=== PATIENT | female | born 1990 | race American Indian/Alaskan Native ===

== ENCOUNTER 2017-05-30 14:16 | Inpatient (IN) | payer MEDICAID ==
[2017-05-30] MEDS ORDERED: Misoprostol 400 MCG (4 X 100 MCG TAB) RECTAL PRN (14:27)
[2017-05-30] MEDS ORDERED: Sodium Chloride 0.9% 10 ML Syringe FLUSH PRN (14:27)
[2017-05-30] MEDS ORDERED: Methylergonovine 0.2 MG/1 ML Amp IM PRN (14:27)
[2017-05-30] MEDS ORDERED: Carboprost Tromethamine 250 MCG/1 ML Amp IM PRN (14:27)
[2017-05-30] MEDS ORDERED: Ondansetron 4 MG/2 ML SDV IV PRN (14:27)
[2017-05-30] MEDS ORDERED: Lactated Ringers 500 ML IV ONE (14:27)
[2017-05-30] MEDS ORDERED: Lidocaine 1% 30 ML SDV INJECT PRN (14:27)
[2017-05-30] MEDS: Lactated Ringers 1,000 ML IV SCH ×4 (14:38→19:55)
[2017-05-30] MEDS ORDERED: Oxytocin/Normal Saline 30 UNIT/500 ML BAG IV SCH (14:45)
[2017-05-30] MEDS ORDERED: fentaNYL 100 MCG/2 ML SDV ONE (15:46)
--- NOTE | 2017-05-30 16:15 | PCM.SN ---
- Free Text/Narrative Note: Intrathecal, Sitting position, sterile prep and drape. 1 % lidocaine w bicarb for skinwheal to L3 L4 interspace. Introducer, 24 Ga pencan x 2. Pos CSF, neg heme, neg parasthesia, 20 mcg PF sufenta, 30 mcg PF fentanyl, 0.4 ml PF NS and 6 mg of 0.75% PF bupivacaine injected after CSF aspiration. Pt to L lateral position. Procedure time 1645 to 1510
[2017-05-30] MEDS ORDERED: ePHEDrine 50 MG/ML SDV ONE (16:16)
[2017-05-30] MEDS: Acetaminophen 325 MG Tab PO PRN (18:23)
[2017-05-30] MEDS ORDERED: Zolpidem 5 MG Tab PO PRN (21:06)
[2017-05-30] MEDS ORDERED: Benzocaine/Menthol 20%-0.5% Spray 56 GM Canister TOP PRN (21:06)
[2017-05-30] MEDS ORDERED: Simethicone 80 MG Tab.Chew PO PRN (21:06)
[2017-05-30] MEDS ORDERED: Docusate Sodium 100 MG Cap PO PRN (21:06)
--- NOTE | 2017-05-30 21:13 | PCM.DEL ---
L & D Note - General Info Date of Service: 05/30/17 (time of delivery 1735) Mother's Due Date: 06/06/17 - Delivery Note Labor: Spontaneous Delivery Outcome: Livebirth Infant Delivery Method: Spontaneous Vaginal Delivery-Single Infant Delivery Mode: Spontaneous Presentation: Right Occiput Anterior (ANDREW) Nuchal Cord: None Anesthesia Type: Intrathecal Amniotic Fluid Description: Clear Episiotomy Type: None Laceration: None Placenta: Intact Cord: 3 Vessels Estimated Blood Loss: 100 Resuscitation Needed: No : Suctioned, Bulb Syringe, Stimulated, Warmed Provider: Mey Payne Score 1 min: 9 Second Stage Interventions: Reports: Pushing, McRobert's Position Delivery Comments (Free Text/Narrative):: Erica delivered in McRobert's position due to her delivery of macrosomic infants. Viable male infant over intact perineum in one contraction with one push. no lacerations. minimal blood loss. placenta intact. 3 vessel cord Baby delivered to mother's abdomen. Induction Criteria - Pineda Score Pineda Score Dilation: > 5 cm Pineda Score Effacement: >80% Pineda Score Infant's Station: -2 Pineda Score Consistency: Soft Pineda Score Cervix Position: Anterior Pineda Score Total: 11 Pineda Score Presenting Part: Reports: Cephalic - Induction Gestational Age >/= 39 wks: Yes Estimated Pelvis: Reports: Adequate Reassuring Monitoring Strip: Yes Absence of Tachy Systole: Yes - Augmentation Estimated Pelvis: Reports: Adequate Weight Estimated:: Reports: AGA Reassuring Monitoring Strip: Yes Absence of Tachy Systole: Yes - General Info Date of Service: 05/30/17 Functional Status: Reports: Pain Controlled - Review of Systems General: Reports: No Symptoms HEENT: Reports: No Symptoms Pulmonary: Reports: No Symptoms Cardiovascular: Reports: No Symptoms Gastrointestinal: Reports: No Symptoms Genitourinary: Reports: No Symptoms Musculoskeletal: Reports: No Symptoms Skin: Reports: No Symptoms Neurological: Reports: No Symptoms Psychiatric: Reports: No Symptoms - Patient Data Vitals - Most Recent: Last Vital Signs Temp 96.8 F 05/30/17 16:52 Pulse 54 L 05/30/17 17:46 Resp 16 05/30/17 17:46 BP 121/75 05/30/17 17:46 Pulse Ox 100 05/30/17 16:56 Weight - Most Recent: 273 lb Lab Results Last 24 Hours: Laboratory Results - last 24 hr 05/30/17 Range/Units 14:35 WBC 9.4 (5.0-10.0) 10^3/uL RBC 4.43 (4.2-5.4) 10^6/uL Hgb 12.7 D (12.0-16.0) g/dL Hct 39.3 (37.0-47.0) % MCV 88.7 (80-100) fL MCH 28.7 (27.0-34.0) pg MCHC 32.3 L (33.0-35.0) g/dL Plt Count 276 (150-450) 10^3/uL Med Orders - Current: Current Medications Acetaminophen (Tylenol) 650 mg PO Q4H PRN PRN Reason: Pain (Mild 1-3) and fever Last Admin: 05/30/17 18:23 Dose: 650 mg Benzocaine/Menthol (Dermoplast Pain Relief [place]) 0 gm TOP Q4H PRN PRN Reason: Perineal comfort measures Carboprost Tromethamine (Hemabate Ds) 250 mcg IM ASDIRECTED PRN PRN Reason: HEMORRHAGE Docusate Sodium (Colace) 100 mg PO BID PRN PRN Reason: Constipation Lactated Ringer's (Ringers, Lactated) 1,000 mls @ 125 mls/hr IV ASDIRECTED [facility] Last Admin: 05/30/17 19:55 Dose: 125 mls/hr Oxytocin/Sodium Chloride (Pitocin In Ns 30 Unit/500 Ml) 30 unit in 500 mls @ 500 mls/hr IV TITRATE [facility] PRN Reason: Protocol Last Titration: 05/30/17 19:00 Dose: 50 mls/hr, 50 mls/hr Ibuprofen (Motrin) 800 mg PO Q8H PRN PRN Reason: Mild Pain or Fever Lidocaine HCl (Xylocaine-Mpf 1%) 30 ml INJECT ASDIRECTED PRN PRN Reason: Perineal Repair Methylergonovine Maleate (Methergine) 0.2 mg IM ASDIRECTED PRN PRN Reason: Hemorrhage Misoprostol (Cytotec) 800 mcg RECTAL ASDIRECTED PRN PRN Reason: Hemorrhage Ondansetron HCl (Zofran) 4 mg IV Q4H PRN PRN Reason: Nausea/Vomiting Last Admin: 05/30/17 15:51 Dose: 4 mg Prenat Multivit/[place]/Iron/Folic Ac ( Plus Iron) 1 each PO DAILY HENNA Simethicone (Simethicone) 80 mg PO Q4H PRN PRN Reason: Gas Sodium Chloride (Saline Flush) 10 ml FLUSH ASDIRECTED PRN PRN Reason: Keep Vein Open Zolpidem Tartrate (Ambien) 5 mg PO BEDTIME PRN PRN Reason: Insomnia Discontinued Medications Ephedrine Sulfate (Ephedrine Sulfate) Confirm Administered Dose 50 mg .ROUTE .STK-MED ONE Stop: 05/30/17 16:17 Last Admin: 05/30/17 19:44 Dose: Not Given Fentanyl (Sublimaze) Confirm Administered Dose 100 mcg .ROUTE .STK-MED ONE Stop: 05/30/17 15:47 Last Admin: 05/30/17 17:09 Dose: Not Given Lactated Ringer's (Ringers, Lactated) 500 mls @ 500 mls/hr IV .BOLUS ONE Stop: 05/30/17 15:26 Last Admin: 05/30/17 19:44 Dose: Not Given Sufentanil Citrate (Sufenta) Confirm Administered Dose 50 mcg .ROUTE .STK-MED ONE Stop: 05/30/17 15:47 Last Admin: 05/30/17 17:09 Dose: Not Given - Exam General: Alert, Oriented HEENT: Pupils Equal, Pupils Reactive, EOMI, Mucous Membr. Moist/[place] Neck: Supple Lungs: Clear to Auscultation, Normal Respiratory Effort Cardiovascular: Regular Rate, Regular Rhythm GI/Abdominal Exam: Normal Bowel Sounds, Soft, Non-Tender, No Organomegaly, No Distention, No Abnormal Bruit, No Mass, Pelvis Stable (Female) Exam: Normal External Exam, Normal Speculum Exam, Normal Bimanual Exam Back Exam: Normal Inspection, Full Range of Motion Extremities: Normal Inspection, Normal Range of Motion, Non-Tender, No Pedal Edema, Normal Capillary Refill Skin: Warm, Dry, Intact Wound/Incisions: Healing Well Neurological: No New Focal Deficit Psy/Mental Status: Alert, Normal Affect, Normal Mood - Problem List & Annotations (1) Group B Streptococcus not isolated SNOMED Code(s): 207364004 Code(s): BQI0173 - Status: Acute Current Visit: Yes (2) Normal vaginal delivery SNOMED Code(s): 98627357 Code(s): O80 - ENCOUNTER FOR FULL-TERM UNCOMPLICATED DELIVERY Status: Acute Current Visit: Yes (3) History of delivery of macrosomal infant SNOMED Code(s): 87436916899144 Code(s): Z87.59 - PERSONAL HISTORY OF COMP OF PREG, CHLDBRTH AND THE PUERP Status: Acute Current Visit: Yes - Problem List Review Problem List Initiated/Reviewed/Updated: Yes - My Orders Last 24 Hours: My Active Orders 05/30/17 14:27 Acetaminophen [Tylenol] 650 mg PO Q4H PRN Carboprost Tromethamine [Hemabate DS] 250 mcg IM ASDIRECTED PRN Lidocaine 1% [Xylocaine-MPF 1%] 30 ml INJECT ASDIRECTED PRN Methylergonovine [Methergine] 0.2 mg IM ASDIRECTED PRN Misoprostol [Cytotec] 800 mcg RECTAL ASDIRECTED PRN Ondansetron [Zofran] 4 mg IV Q4H PRN Sodium Chloride 0.9% [Saline Flush] 10 ml FLUSH ASDIRECTED PRN Resuscitation Status Routine 05/30/17 14:28 Patient Status [ADT] Routine Notify Provider Vital Signs OB [RC] ASDIRECTED Notify Provider [RC] PRN Up ad Jes [RC] ASDIRECTED Vital Signs [RC] PER UNIT ROUTINE Saline Lock Insert [OM.PC] Routine 05/30/17 14:30 Lactated Ringers [Ringers, Lactated] 1,000 ml IV ASDIRECTED 05/30/17 14:45 Oxytocin/Normal Saline [Pitocin in NS 30 UNIT/500 ML] 30 unit in 500 ml IV TITRATE 05/30/17 21:06 Benzocaine/Menthol [Dermoplast Pain Relief [place]] See Dose Instructions TOP Q4H PRN Docusate Sodium [Colace] 100 mg PO BID PRN Ibuprofen [Motrin] 800 mg PO Q8H PRN Simethicone 80 mg PO Q4H PRN Zolpidem [Ambien] 5 mg PO BEDTIME PRN 05/30/17 21:07 Assess Lochia [WOMSER] Per Unit Routine Assess Uterine Involution [WOMSER] Per Unit Routine Breast Pump [WOMSER] Per Unit Routine Ice Therapy [OM.PC] Per Unit Routine Perineal Care [OM.PC] Per Unit Routine Sitz Bath [OM.PC] Per Unit Routine 05/30/17 Lunch Clear Liquid Diet [DIET] 05/31/17 09:00 Vit with Ca/FA/Iron [ Plus Iron] 1 each PO DAILY - Assessment Assessment:: vaginal delivery - Plan Plan:: Assessment: 39 week IUP, active labor with advanced cervical dilation at clinic 5-6cm with BBOWI with Hx macrosomic GBS - O+ blood type RI viable male infant without complication, APGARs pending, 9 @ 1 minute weight 3415g born on 05-30-17 @ 1735 intact perineum, no lacerations, EBL <100, intrathecal, NST reactive. Plan: will follow routine L&D, and cares and orders. likely home PPD 1 or 2. All questions answered. Hgb on admit >12, and EBL minimal, likely will not need to check again if VS remain stable. hmb
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
[2017-05-31] MEDS: Prenatal Multivitamin with Calcium/Folic Acid/Iron Tab PO SCH (08:07)
[2017-05-31] MEDS: Ibuprofen 800 MG Tab PO PRN ×2 (08:10→21:00)
[2017-05-31] MEDS: Acetaminophen 325 MG Tab PO PRN ×2 (12:33→17:18)
--- NOTE | 2017-05-31 18:55 | PCM.PRNOTE ---
- Free Text/Narrative Note: DOS: 05-31-17 Day #1 Doing well. yesterday. eating, stooling, voiding well. not much cramping. flow decreasing. VSS, afebrile fundus firm will continue to follow closely. likely home tomorrow see nursing notes for further details. All questions answered for mom and family. b
[2017-06-01] MEDS: Acetaminophen 325 MG Tab PO PRN ×2 (02:54→08:31)
--- NOTE | 2017-06-01 07:15 | PCM.DCSUM1 ---
Discharge Summary - Hospital Course Free Text/Narrative:: Erica is a 27yo NA who is PPD #2 ready for discharge after @ 39 weeks gestation delivered viable male 7lb 8oz/ 3415g, APGARs 9&9 on 05-30-17 @ 1735 GBS negative, O+, RI, Hep C positive, Hx LGA infants PP course uneventful bottlefeeding VSS afebrile, flow decreasing eating, ambulating, voiding well hmb HPI Initial Comments: seen in clinic, cervix 5-6 cm with BBOWI, cxns, labor @ 39 weeks Brief History: see EPIC - Discharge Data Discharge Date: 06/01/17 Discharge Disposition: Home, Self-Care 01 Condition: Good - Discharge Diagnosis/Problem(s) (1) Group B Streptococcus not isolated SNOMED Code(s): 248720801 ICD Code: [id number] - Status: Acute Current Visit: Yes (2) Normal vaginal delivery SNOMED Code(s): 77750224 ICD Code: O80 - ENCOUNTER FOR FULL-TERM UNCOMPLICATED DELIVERY Status: Acute Current Visit: Yes (3) History of delivery of macrosomal infant SNOMED Code(s): 71785256160859 ICD Code: Z87.59 - PERSONAL HISTORY OF COMP OF PREG, CHLDBRTH AND THE PUERP Status: Acute Current Visit: Yes (4) Blood type O+ SNOMED Code(s): 459769832 ICD Code: Z67.40 - TYPE O BLOOD, RH POSITIVE Status: Acute Current Visit : Yes - Patient Summary/Data Complications: none Hospital Course: uneventful - Patient Instructions Diet: Usual Diet as Tolerated Activity: As Tolerated Showering/Bathing: May Shower Notify Provider of: Fever, Increased Pain, Swelling and Redness - Discharge Plan Home Medications: Home Meds Acetaminophen 500 mg PO Q6H PRN 05/06/16 [History] Ibuprofen [Advil] 200 mg PO Q6H PRN 05/06/16 [History] Vit No.129/Iron/FA [ Tablet] 1 each PO DAILY 05/06/16 [History] Patient Handouts: Vaginal Delivery, Home Care Instructions for Mom Referrals: Mey Payne MD [Physician] - - Discharge Summary/Plan Comment DC Time >30 min.: No Discharge Summary/Plan Comment: follow up 6 week visit and as needed sooner. - General Info Functional Status: Reports: Pain Controlled, Tolerating Diet, Ambulating, Urinating - Patient Data Vitals - Most Recent: Last Vital Signs Temp 97.7 F 05/31/17 20:00 Pulse 55 L 05/31/17 20:00 Resp 18 05/31/17 20:00 BP 105/42 L 05/31/17 20:00 Pulse Ox 96 05/31/17 20:00 Weight - Most Recent: 273 lb Med Orders - Current: Current Medications Acetaminophen (Tylenol) 650 mg PO Q4H PRN PRN Reason: Pain (Mild 1-3) and fever Last Admin: 06/01/17 02:54 Dose: 650 mg Benzocaine/Menthol (Dermoplast Pain Relief [place]) 0 gm TOP Q4H PRN PRN Reason: Perineal comfort measures Carboprost Tromethamine (Hemabate Ds) 250 mcg IM ASDIRECTED PRN PRN Reason: HEMORRHAGE Docusate Sodium (Colace) 100 mg PO BID PRN PRN Reason: Constipation Last Admin: 05/31/17 08:08 Dose: 100 mg Lactated Ringer's (Ringers, Lactated) 1,000 mls @ 125 mls/hr IV ASDIRECTED HENNA Last Admin: 05/30/17 19:55 Dose: 125 mls/hr Oxytocin/Sodium Chloride (Pitocin In Ns 30 Unit/500 Ml) 30 unit in 500 mls @ 500 mls/hr IV TITRATE HENNA PRN Reason: Protocol Last Titration: 05/30/17 21:00 Dose: 0 mls/hr, 0 mls/hr Ibuprofen (Motrin) 800 mg PO Q8H PRN PRN Reason: Mild Pain or Fever Last Admin: 05/31/17 21:00 Dose: 800 mg Lidocaine HCl (Xylocaine-Mpf 1%) 30 ml INJECT ASDIRECTED PRN PRN Reason: Perineal Repair Methylergonovine Maleate (Methergine) 0.2 mg IM ASDIRECTED PRN PRN Reason: Hemorrhage Misoprostol (Cytotec) 800 mcg RECTAL ASDIRECTED PRN PRN Reason: Hemorrhage Ondansetron HCl (Zofran) 4 mg IV Q4H PRN PRN Reason: Nausea/Vomiting Last Admin: 05/30/17 15:51 Dose: 4 mg Prenat Multivit/[place]/Iron/Folic Ac ( Plus Iron) 1 each PO DAILY HENNA Last Admin: 05/31/17 08:07 Dose: 1 each Simethicone (Simethicone) 80 mg PO Q4H PRN PRN Reason: Gas Last Admin: 05/31/17 08:10 Dose: 80 mg Sodium Chloride (Saline Flush) 10 ml FLUSH ASDIRECTED PRN PRN Reason: Keep Vein Open Zolpidem Tartrate (Ambien) 5 mg PO BEDTIME PRN PRN Reason: Insomnia Discontinued Medications Ephedrine Sulfate (Ephedrine Sulfate) Confirm Administered Dose 50 mg .ROUTE .STK-MED ONE Stop: 05/30/17 16:17 Last Admin: 05/30/17 19:44 Dose: Not Given Fentanyl (Sublimaze) Confirm Administered Dose 100 mcg .ROUTE .STK-MED ONE Stop: 05/30/17 15:47 Last Admin: 05/30/17 17:09 Dose: Not Given Lactated Ringer's (Ringers, Lactated) 500 mls @ 500 mls/hr IV .BOLUS ONE Stop: 05/30/17 15:26 Last Admin: 05/30/17 19:44 Dose: Not Given Sufentanil Citrate (Sufenta) Confirm Administered Dose 50 mcg .ROUTE .STK-MED ONE Stop: 05/30/17 15:47 Last Admin: 05/30/17 17:09 Dose: Not Given - Exam General: Reports: Alert, Oriented, Cooperative, No Acute Distress HEENT: Reports: Pupils Equal, Pupils Reactive, EOMI Neck: Reports: Supple Lungs: Reports: Normal Respiratory Effort Cardiovascular: Reports: Regular Rate GI/Abdominal Exam: Soft Back Exam: Reports: Normal Inspection Extremities: Normal Inspection Skin: Reports: Warm, Dry, Intact Neurological: Reports: No New Focal Deficit Psy/Mental Status: Reports: Alert, Normal Affect, Normal Mood *Q Meaningful Use (DIS) - VTE *Q VTE Criteria *Q: - Stroke *Q Stroke Criteria *Q: - AMI *Q AMI Criteria *Q:
[2017-06-01] MEDS: Prenatal Multivitamin with Calcium/Folic Acid/Iron Tab PO SCH (09:51)
[2017-06-01] MEDS ORDERED: fentaNYL 100 MCG/2 ML SDV ITHECAL ONE (13:24)
[2017-06-01 13:48] VITALS: BP 115/58
== END 2017-06-01 13:25 | disposition home or self-care (01) | DRG 775 ==
LOC: DL.OBCHECK 14:16 → DL.OB 14:26 → OBSVTOIN 17:35 → DL.OB 17:35 → EEVIPCON 17:35 → DL.MS 05-31 10:20
PROVIDERS: ADMIT Family Medicine; ATTEND Family Medicine
PROC: 10E0XZZ Delivery of Products of Conception, External Approach (ICD-10-PCS; principal; 2017-05-30)
DX: O99.334 Smoking (tobacco) complicating childbirth (principal); Z3A.39 39 weeks gestation of pregnancy; Z37.0 Single live birth
CPT/HCPCS: 01967; 36415; 59409; 85027; A9270-GY; J2405; J2590; J3010; J7120

== ENCOUNTER 2018-08-09 11:53 | Emergency (ER) | payer MEDICAID ==
[2018-08-09 12:01] VITALS: BP 118/52
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
== END 2018-08-09 12:29 | disposition home or self-care (01) ==
LOC: DL.ED 11:53
DX: L02.01 Cutaneous abscess of face (principal); F17.210 Nicotine dependence, cigarettes, uncomplicated
CPT/HCPCS: 99282

== ENCOUNTER 2020-08-27 04:27 | Emergency (ER) | payer MEDICAID ==
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
[2020-08-27] MEDS ORDERED: Sodium Chloride 0.9% 1,000 ML IV ONE ×2 (04:36→05:05)
[2020-08-27] MEDS ORDERED: HYDROmorphone 1 MG/ML Syringe IVPUSH ONE (04:48)
[2020-08-27] MEDS: Ondansetron 4 MG/2 ML SDV ONE ×2 (04:48→05:44)
[2020-08-27] MEDS ORDERED: Ondansetron 4 MG/2 ML SDV IVPUSH ONE (04:48)
[2020-08-27] MEDS: HYDROmorphone 1 MG/ML Syringe ONE ×2 (04:50→05:44)
[2020-08-27 04:59] LABS: ANION GAP 15.5 mEq/L (7-13); CHLORIDE,CL 103 mmol/L (98-107); SODIUM,NA 139 mmol/L (136-145)
[2020-08-27 05:58] VITALS: BP 110/55; PULSE 81
== END 2020-08-27 06:07 ==
LOC: DL.ED 04:27
DX: N93.9 Abnormal uterine and vaginal bleeding, unspecified (principal); B18.2 Chronic viral hepatitis C
CPT/HCPCS: 36415; 36430; 80053; 80307; 84703; 85025; 86850; 86900; 86901; 86920; 86922; 96374; 96375; 99285; J1170; J2405; J7030; P9016; 99284